=== PATIENT | male | born 1980 | race Caucasian/White ===

== ENCOUNTER 2018-06-22 11:18 | Outpatient (CLI) | payer OTHER | END 2018-06-22 11:19 | disposition home or self-care (01) | LOC: SC 11:18 | PROVIDERS: ATTEND Internal Medicine Pulmonary Disease | DX: R06.81 Apnea, not elsewhere classified (principal); G47.8 Other sleep disorders; R41.89 Other symptoms and signs involving cognitive functions and awareness; G47.10 Hypersomnia, unspecified; R06.83 Snoring; E66.3 Overweight; Z68.28 Body mass index [BMI] 28.0-28.9, adult | CPT/HCPCS: 99203; 99212 ==

== ENCOUNTER 2018-07-02 19:00 | Outpatient (CLI) | payer OTHER | END 2018-07-02 19:01 | disposition home or self-care (01) | LOC: SC 19:00 | PROVIDERS: ATTEND Internal Medicine Pulmonary Disease | DX: G47.33 Obstructive sleep apnea (adult) (pediatric) (principal) | CPT/HCPCS: 95810 ==

== ENCOUNTER 2018-07-27 10:55 | Outpatient (CLI) | payer OTHER | END 2018-07-27 10:56 | disposition home or self-care (01) | LOC: SC 10:55 | PROVIDERS: ATTEND Nurse Practitioner Family | DX: G47.33 Obstructive sleep apnea (adult) (pediatric) (principal) | CPT/HCPCS: 99212; 99214 ==

== ENCOUNTER 2018-09-21 10:39 | Outpatient (CLI) | payer OTHER | END 2018-09-21 10:40 | disposition home or self-care (01) | LOC: SC 10:39 | PROVIDERS: ATTEND Nurse Practitioner Family | DX: G47.33 Obstructive sleep apnea (adult) (pediatric) (principal) | CPT/HCPCS: 99212; 99214 ==

== ENCOUNTER 2020-05-21 19:38 | Emergency (ER) | payer OTHER ==
--- NOTE | 2020-05-22 01:28 | ED Physician Documentation ---
PD HPI CHEST PAIN - Stated complaint Stated Complaint: CHEST PX - Chief complaint Chief Complaint: Cardiac - History obtained from History obtained from: Patient - History of Present Illness Timing - onset: How many days ago (5) Timing - duration: Days Timing - details: Intermittant Quality: Pain Location: Substernal, Right chest Radiation: Other (no radiation) Improved by: Nothing Worsened by: Other (no exacerbsting factors) Associated symptoms: No: Shortness of air, Diaphoresis, Nausea, Vomiting, Feeling faint / dizzy, General Weakness, Palpitations, Cough Similar symptoms before: Has not had sx before Recently seen: Not recently seen Review of Systems Constitutional: reports: Reviewed and negative Cardiac: reports: Chest pain / pressure. denies: Palpitations, Pedal edema Respiratory: reports: Reviewed and negative GI: reports: Reviewed and negative Musculoskeletal: denies: Extremity swelling PD PAST MEDICAL HISTORY - Past Medical History Past Medical History: No - Past Surgical History Past Surgical History: Yes HEENT: Other - Present Medications Home Medications: Ambulatory Orders Medication Instructions Recorded Confirmed No Known Home Medications 05/22/20 05/22/20 - Allergies Allergies/Adverse Reactions: Allergies Allergy/AdvReac Type Severity Reaction Status Date / Time Sulfa (Sulfonamide Allergy Unknown Verified 05/21/20 19:45 Antibiotics) - Social History Does the pt smoke?: No Smoking Status: Never smoker Does the pt drink ETOH?: Yes Does the pt have substance abuse?: No - Immunizations Immunizations are current?: Yes - POLST Patient has POLST: No PD ED PE NORMAL - Vitals Vital signs reviewed: Yes - General General: Alert and oriented X 3, No acute distress, Well developed/nourished - Neck Neck: Supple, no meningeal sign - Cardiac Cardiac: RRR, No murmur, No gallop, No rub - Respiratory Respiratory: No respiratory distress, Clear bilaterally - Abdomen Abdomen: Soft, Non tender - Derm Derm: Normal color, Warm and dry - Extremities Extremities: No edema Results - Vitals Vitals: Oxygen O2 Source Room air - EKG (time done) No standard instances Rate: Rate (enter#) (84) Rhythm: NSR [place]: Normal Intervals: Normal [place] QRS: Normal Ischemia: Normal ST segments - Labs Labs: Laboratory Tests 05/22/20 05/22/20 05/22/20 01:29 01:29 01:29 WBC 5.7 RBC 5.47 Hgb 16.4 Hct 46.9 MCV 85.7 MCH 30.0 MCHC 35.0 RDW 13.1 Plt Count 164 MPV 11.5 H Neut # (Auto) 2.9 Lymph # (Auto) 2.1 [place] # (Auto) 0.5 Eos # (Auto) 0.1 Baso # (Auto) 0.1 Absolute Nucleated RBC 0.00 Nucleated RBC % 0.0 Sodium 137 Potassium 3.7 Chloride 104 Carbon Dioxide 24 Anion Gap 9.0 BUN 17 Creatinine 0.8 Estimated GFR (MDRD) 108 Glucose 96 Calcium 9.2 Total Bilirubin 0.8 AST 20 ALT 33 Alkaline Phosphatase 57 Troponin I High Sens < 2.3 L Total Protein 7.1 Albumin 4.4 Globulin 2.7 Albumin/Globulin Ratio 1.6 Lipase 43 - Rads (name of study) chest xray Radiology: Prelim report reviewed, See rad report PD MEDICAL DECISION MAKING - ED course Complexity details: reviewed results, re-evaluated patient, considered differential, d/w patient Departure - Departure Disposition: 01 Home, Self Care Clinical Impression: Chest pain Condition: Good Instructions: ED Chest Pain Atypical Unkn Cause Discharge Date/Time: 05/22/20 03:31
[2020-05-22 01:35] LABS: BASOPHILS # (AUTO) 0.1 10^3/uL (0.0-0.1); BASOPHILS % (AUTO) 1.2 %; EOSINOPHILS # (AUTO) 0.1 10^3/uL (0.0-0.7); EOSINOPHILS % (AUTO) 1.9 %; HGB - HEMOGLOBIN 16.4 g/dL (14.0-18.0); LYMPHOCYTES # (AUTO) 2.1 10^3/uL (1.5-3.5); LYMPHOCYTES % (AUTO) 36.4 %; MEAN CORPUSCULAR VOLUME 85.7 fL (80.0-94.0); MEAN PLATELET VOLUME 11.5 fL (7.4-11.4); MONOCYTES # (AUTO) 0.5 10^3/uL (0.0-1.0); MONOCYTES % (AUTO) 8.8 %; NEUTROPHILS # (AUTO) 2.9 10^3/uL (1.5-6.6); NEUTROPHILS % (AUTO) 51.5 %; PLT - PLATELET COUNT 164 10^3/uL (130-450); RED BLOOD COUNT 5.47 10^6/uL (4.70-6.10); RED CELL DISTRIBUTION WIDTH 13.1 % (12.0-15.0); WHITE BLOOD COUNT 5.7 x10^3/uL (4.8-10.8)
[2020-05-22 01:48] LABS: ALBUMIN 4.4 g/dL (3.2-5.5); ALBUMIN/GLOBULIN RATIO 1.6 (1.0-2.2); BILIRUBIN,TOTAL 0.8 mg/dL (0.2-1.0); CALCIUM 9.2 mg/dL (8.5-10.3); CREATININE 0.8 mg/dL (0.6-1.2); TOTAL PROTEIN 7.1 g/dL (6.7-8.2)
[2020-05-22 03:32] VITALS: BP 119/87
--- NOTE | 2020-05-22 09:45 | XRAY Report ---
PROCEDURE: Chest 2 View X-Ray INDICATIONS: chest pain TECHNIQUE: 2 view(s) of the chest. COMPARISON: None. FINDINGS: Surgical changes and devices: None. Lungs and pleura: No pleural effusions or pneumothorax. Lungs are clear. Mediastinum: Mediastinal contours are normal. Heart size is normal. Bones and chest wall: No suspicious bony abnormalities. Soft tissues appear unremarkable. IMPRESSION: No acute pulmonary process. The above findings are concordant with preliminary report. Reviewed by: Shelby Villafana MD on 05/22/2020 9:44 AM [facility] Approved by: Shelby Villafana MD on 05/22/2020 9:44 AM [facility] Station ID: [id number]
== END 2020-05-22 03:31 | disposition home or self-care (01) ==
LOC: ED 19:38
DX: R07.89 Other chest pain (principal)
CPT/HCPCS: 36415; 80053; 83690; 84484; 85025; 93005; 99284

== ENCOUNTER 2020-10-09 08:17 | Outpatient (CLI) | payer OTHER ==
--- NOTE | 2020-10-09 12:55 | MRI Report ---
PROCEDURE: Cervical Spine W/O INDICATIONS: CERVICALGIA TECHNIQUE: Noncontrast sagittal T1 spin echo and T2 fast spin echo, sagittal STIR, foraminal oblique sagittal T2 fast spin echo, and axial gradient echo or T2 fast spin echo through the cervical spine. COMPARISON: None. FINDINGS: Image quality: Excellent. Alignment and Curvature: There is loss of normal cervical lordosis. Mild grade 1 retrolisthesis of C 2 on C3 and C4 on C5. Bone Marrow: Marrow demonstrates normal overall signal. Minimal reactive signal within the endplate s adjacent to the C3-C4 intervertebral disc as well as the C5-C6 and C6-C7 intervertebral discs. Spinal Cord: Visualized spinal cord has normal size and signal. No cerebellar tonsillar herniation. Paraspinous Soft Tissues: No paravertebral masses. Prevertebral soft tissues are normal in thicknes s. C2-C3: Mild disc desiccation. No significant canal, nor foraminal stenosis. C3-C4: Mild disc desiccation and diffuse disc bulge. Mild facet and uncovertebral hypertrophy bilat erally. Mild canal stenosis. Mild bilateral foraminal stenosis. C4-C5: Mild disc desiccation. Mild facet and uncovertebral hypertrophy bilaterally. Mild canal steno sis. Mild bilateral foraminal stenosis. C5-C6: Mild disc height loss and desiccation. Mild diffuse disc bulge with superimposed small centra l protrusion. Mild facet and uncovertebral hypertrophy bilaterally. Mild canal stenosis. Mild bilater al foraminal stenosis. C6-C7: Mild disc desiccation and diffuse disc bulge. Mild facet and uncovertebral hypertrophy bilate rally. Mild canal stenosis. Mild bilateral foraminal stenosis. C7-T1: Normal in appearance. IMPRESSION: 1. Multilevel degenerative disc and facet disease, as well as uncovertebral hypertrophy. 2. Mild multilevel canal and foraminal stenoses. 3. No neural impingement. Reviewed by: Annetta Pro MD on 10/09/2020 12:54 PM PDT Approved by: Annetta Pro MD on 10/09/2020 12:54 PM PDT Station ID: [id number]
== END 2020-10-09 08:18 | disposition home or self-care (01) ==
LOC: DI 08:17
PROVIDERS: ATTEND Family Medicine
DX: M47.812 Spondylosis without myelopathy or radiculopathy, cervical region (principal); M50.31 Other cervical disc degeneration, high cervical region; M48.02 Spinal stenosis, cervical region; M50.222 Other cervical disc displacement at C5-C6 level

== ENCOUNTER 2022-04-23 10:26 | Outpatient (CLI) | payer OTHER ==
[2022-04-23 11:16] VITALS: BP 130/88
--- NOTE | 2022-04-23 11:17 | SLEEP CARE CONSULTATION ---
Information from patient questionnaire entered by Sherry Richardson MA. I have reviewed and concur with the information entered by Sherry Richardson MA. This document represents the service I personally performed and the decisions made by , Carmen Bassett ARNP. History of Present Illness Service Date and Time: 04/23/2022 1026 Reason for Visit: Previously diagnosed sleep apnea, Re-establish care Chief Complaint: reports: Unrefreshed sleep, Snoring, Excessive daytime sleepiness, Observed pauses in breathing, Fatigue Date of Onset: 2017 Usual bedtime: 0 - 0 Time it takes to fall asleep: <5min Snores at night: Yes Observed to quit breathing while asleep: Yes Sleeps alone due to snoring: Yes Number of times waking at night: 2+ Reasons for waking at night: reports: Snoring, Gasping for air (1-2 times; not common), Other (unknown reasons) Toss, Turn, or Twitch while sleeping: Yes Recalls having dreams: No Usually gets out of bed at: 0600 Feels refreshed in the morning: No Morning headache: No Sleepy or fatigued during the day: Yes Ever fallen asleep while driving: No Takes day naps: Yes (daily for about 15 mins to 2 hrs) Dreams during day naps: No Prior sleep studies: Yes Additional HPI information: NITIN CHENG was diagnosed to have mild, AHI 9.1, obstructive sleep apnea-hypopnea syndrome and comes in today to re-establish care for Positional therapy. He states the positional therapy has helped but his symptoms have been getting worse. He currently experiencing excessive daytime sleepiness, fatigue, observed pauses in breathing, snoring and unrefreshed sleep. - Parasomnia Symptoms Ever been unable to move upon waking from sleep: No Walks in sleep: No Talks in sleep: Yes Ever acted out dreams in sleep: No Ever felt weak in the knees when startled or emotional: No Bothered by creepy, crawly, restless sensations in legs: No Problems with memory or concentration: Yes (more concentration ) Subjective Current [place] Sleepiness Scale score: 13 (04/23/2022) Past Medical History Past Medical History: reports: Anxiety, Depression Social History The patient's occupation is a AM. Patient is and lives in [place]. Have you smoked in the past 12 months: No Alcohol use: Yes Alcohol amount and frequency: 3-4 PER WEEK Caffeine use: Yes Caffeine amount and frequency: 3+ QD Family History Family history of sleep disordered breathing: Yes Family Hx Sleep Apnea: Mother: Sleep apnea - Treated Allergies and Home Medications Drug allergies reviewed: Yes (Sulfa) Home medication list reviewed: Yes (no daily medications) Review of Systems Weight gain over past 5 years: 25 Respiratory: reports: chronic cough Ear/Nose/Throat: reports: wisdom teeth removed Immunologic: reports: sneezing Physical Exam Vital signs obtained and entered by: KENN BOB Blood Pressure: 130/88 Cuff size: regular Heart Rate: 70 O2 Saturation: 98 Height: 6 ft 1 in Weight: 224 lb 6 oz Body Mass Index: 29.6 BMI Classification: Overweight Neck circumference: 16.5 Heart: regular rate and rhythm Lungs: clear bilaterally Impression and Plan 1. Obstructive Sleep Apnea-Hypopnea Syndrome, mild. Patient has been using positional therapy since 2019. He states that he did have better sleep quality and was more rested overall in the past but has been having an increase of his symptoms for some time. He has gained 25 pounds since his last appointment. He feels he needs something more to control his apnea and he would like to try CPAP therapy again. He tried it for a few months but found the mask off his face, he thinks it may have been due to feeling like he could not breath in mask. Since he has been on consistent positional therapy for his sleep apnea we can transition him to CPAP therapy. I will write a prescription to start nasal APAP therapy at 5-15 cmH2O. He will chose a DME supplier. He will follow up in office a month after starting therapy. He will call if he has any difficulties with the pressure. We reviewed compliance and he voiced understanding. Patient's apnea severity and rationale for treatment to reduce apnea, improve sleep quality and reduce cardiovascular and cerebrovascular events was reviewed. -Continue positional therapy until starting CPAP therapy -Start nasal autoCPAP at 5-15 cmH2O. -Attempt to lose weight -Call this office if any problems -Return for follow up one month after he obtains new device, or sooner if concerns arise Counseling Topics: Sleeping position, Weight loss health impact Prescriptions: Auto CPAP Visit Type: In Office Time Spent with Patient (minutes): 31 Provider Statement: I spent 100% of the Face to Face Visit with the patient with greater than 50% spent counseling the patient and coordination of care.
== END 2022-04-23 10:27 | disposition home or self-care (01) ==
LOC: SC 10:26
PROVIDERS: ATTEND Nurse Practitioner Family
DX: G47.33 Obstructive sleep apnea (adult) (pediatric) (principal); E66.3 Overweight; Z68.29 Body mass index [BMI] 29.0-29.9, adult
CPT/HCPCS: 99203; 99212

== ENCOUNTER 2022-10-14 13:15 | Outpatient (CLI) | payer OTHER ==
--- NOTE | 2022-10-14 13:56 | SLEEP CARE CONSULTATION ---
Information from patient questionnaire entered by Moise Plascencia. I have reviewed and concur with the information entered by Moise Plascencia. This document represents the service I personally performed and the decisions made by , Carmen Bassett ARNP. History of Present Illness Service Date and Time: 10/14/2022 1315 Previous diagnosis: Mild, Obstructive Sleep Apnea-Hypopnea Syndrome (Resmed) AHI: 9.1 Reason for follow up: first compliance Equipment type: CPAP (Resmed Airsense 11, s/u 07/2022) Equipment obtained from: [employer] ([employer]) Mask style: Nasal (medium) Backup mask available: No (will keep old mask when replaced) Last cushion change: 2 months Prior sleep studies: Yes Year and Where: 2018 [facility] Type of Sleep Study: Polysomnography HPI additional information: NITIN CHENG was diagnosed to have mild, AHI 9.1, obstructive sleep apnea- hypopnea syndrome and returned today for CPAP therapy first compliance follow- up. Sleep Study - Results Type of Sleep Study: Polysomnography Prior sleep studies: Yes Year and Where: 2018 [facility] CPAP Compliance Data - Data Reviewed with Patient Average duration of nightly device use: 1 hour 8 minutes Compliance rate %: 0 (23/60 days used) Current pressure setting (cmH2O): 5-15 (median 4.7, avg 5.9, max 6.2) Average residual AHI: 2.6 Central apnea: 0 Obstructive apnea: 1 Subjective Missed days of use due to: reports: other (taking mask off when sleeping; scheduling) Patient concerns: reports: dry mouth, nose, throat (occasional). denies: aerophagia, mask discomfort, air blowing in eyes, mask leak noise, condensation in mask/hose, nasal congestion, epistaxis Observed to snore while using device: No Current pressure setting perceived as: comfortable On therapy, patient: reports: awakening more refreshed, being more awake and alert during the day, more rested overall. denies: drowsiness while driving Initial [place] Sleepiness Scale score: 12 (In 06/2018) Current [place] Sleepiness Scale score: 6 Allergies and Home Medications Known drug allergies: Yes (sulfa) Drug allergies reviewed: Yes Home medication list reviewed: Yes (no changes) Allergy and home medication list: Allergies Sulfa (Sulfonamide Antibiotics) Allergy Unknown Review of Systems Review of systems same as previous: Yes (no changes) Physical Exam Vital signs obtained and entered by: Carmen Benitez NP Blood Pressure: 141/86 Cuff size: wrist (right) Heart Rate: 97 O2 Saturation: 97 Height: 6 ft 1 in Weight: 237 lb Body Mass Index: 31.2 BMI Classification: Obese Impression and Plan 1. Obstructive Sleep Apnea-Hypopnea Syndrome, mild, with poor treatment compliance and good apnea control. On CPAP therapy, the patient has been more alert during the day and is more rested overall. He had been working on his schedule to be able to put the mask on every night. But, he will take the mask off his face while sleeping a couple hours after sleep is initiated. He is committed to using the CPAP and will try to increase compliance. The patients pressure will be changed to autoCPAP 5-10 cmH20 to reflect pressure being used. Patient advised to contact me if pressure change is uncomfortable so that it can be adjusted. Goals for apnea control discussed. Patient's apnea severity and rationale for treatment to reduce apnea, improve sleep quality and reduce cardiovascular and cerebrovascular events was reviewed. I also reviewed the benefit of consistent device use of CPAP for depression/anxiety. 2. Obesity, unspecified. Currently patients BMI is 31.2. Obesity increases the risk of apnea, CPAP pressure requirements and overall health risks especially cardiovascular and diabetes. Thus patient is advised to lose weight. * Change auto CPAP pressure to 5-10 cmH2O * Notify me if snoring with mask or feeling that the pressure is too much or too little * Attempt to lose weight * Call this office if any problems using CPAP * Return for follow up in 1-2 months, or sooner if concerns arise Counseling Topics: Spare mask, Weight loss health impact Visit Type: In Office Time Spent with Patient (minutes): 22 Provider Statement: I spent 100% of the Face to Face Visit with the patient with greater than 50% spent counseling the patient and coordination of care.
[2022-10-14 14:05] VITALS: BP 141/86
== END 2022-10-14 13:16 | disposition home or self-care (01) ==
LOC: SC 13:15
PROVIDERS: ATTEND Nurse Practitioner Family
DX: G47.33 Obstructive sleep apnea (adult) (pediatric) (principal); E66.9 Obesity, unspecified; Z68.31 Body mass index [BMI] 31.0-31.9, adult
CPT/HCPCS: 99212

== ENCOUNTER 2023-02-17 16:32 | Emergency (ER) | payer OTHER ==
[2023-02-17 17:37] LABS: BASOPHILS # (AUTO) 0.1 10^3/uL (0.0-0.1); BASOPHILS % (AUTO) 0.8 %; EOSINOPHILS # (AUTO) 0.1 10^3/uL (0.0-0.7); EOSINOPHILS % (AUTO) 1.4 %; HCT - HEMATOCRIT 48.6 % (42.0-52.0); HGB - HEMOGLOBIN 16.9 g/dL (14.0-18.0); LYMPHOCYTES % (AUTO) 25.5 %; MEAN CORPUSCULAR HEMOGLOBIN 29.2 pg (27.0-31.0); MEAN CORPUSCULAR HGB CONC 34.8 g/dL (32.0-36.0); MEAN CORPUSCULAR VOLUME 83.9 fL (80.0-94.0); MEAN PLATELET VOLUME 10.8 fL (7.4-11.4); MONOCYTES # (AUTO) 0.8 10^3/uL (0.0-1.0); MONOCYTES % (AUTO) 10.2 %; NEUTROPHILS # (AUTO) 4.9 10^3/uL (1.5-6.6); NEUTROPHILS % (AUTO) 61.8 %; PLT - PLATELET COUNT 189 10^3/uL (130-450); RED BLOOD COUNT 5.79 10^6/uL (4.70-6.10); RED CELL DISTRIBUTION WIDTH 13.1 % (12.0-15.0)
[2023-02-17 17:52] LABS: ALBUMIN 4.6 g/dL (3.2-5.5); ALBUMIN/GLOBULIN RATIO 2.1 (1.0-2.2); BILIRUBIN,TOTAL 0.5 mg/dL (0.2-1.0); CALCIUM 9.9 mg/dL (8.5-10.3); CREATININE 0.8 mg/dL (0.6-1.3); PHOSPHORUS 4.1 mg/dL (2.5-5.0); POTASSIUM 4.1 mmol/L (3.5-4.5); TOTAL PROTEIN 6.8 g/dL (6.4-8.9)
[2023-02-17 17:58] LABS: TROPONIN I HIGH SENSITIVITY 2.7 ng/L (2.3-19.7)
--- NOTE | 2023-02-17 17:58 | ED Physician Documentation ---
History of Present Illness - Stated complaint Stated Complaint: HEART PALPITATIONS/HIGH BP - Chief complaint Chief Complaint: Cardiac - History obtained from History obtained from: Patient - History of Present Illness Timing: Today Pain level max: 0 Pain level now: 0 - Additonal information Additional information: 42-year-old male presents to the emergency department with approximately 5 minutes of palpitations earlier today. Occurred when he went to lie down for a nap. Had a cup of coffee this morning, but denies any other stimulant use. No energy drinks. Drinks alcohol occasionally. Does not use marijuana. Does not use any other drugs. Does not smoke. No fevers. No chills. No chest pain. No recent illnesses. No recent travel. No recent surgery. No history of blood clots. No dyspnea. Patient is fully asymptomatic. Review of Systems Constitutional: denies: Fever, Chills GI: denies: Vomiting, Diarrhea Skin: denies: Rash Musculoskeletal: denies: Neck pain, Back pain Neurologic: denies: Headache PD PAST MEDICAL HISTORY - Past Medical History Past Medical History: Yes Cardiovascular: Hypertension - Past Surgical History Past Surgical History: Yes HEENT: Other - Present Medications Home Medications: Ambulatory Orders Medication Instructions Recorded Confirmed No Known Home Medications 05/22/20 02/17/23 - Allergies Allergies/Adverse Reactions: Allergies Allergy/AdvReac Type Severity Reaction Status Date / Time Sulfa (Sulfonamide Allergy Unknown Verified 02/17/23 17:01 Antibiotics) - Social History Does the pt smoke?: No Smoking Status: Never smoker Does the pt drink ETOH?: Yes Does the pt have substance abuse?: No - Immunizations Immunizations are current?: Yes - POLST Patient has POLST: No PD ED PE NORMAL - Vitals Vital signs reviewed: Yes - General General: Alert and oriented X 3, No acute distress - HEENT HEENT: PERRL, Moist mucous membranes - Neck Neck: Supple, no meningeal sign - Cardiac Cardiac: RRR, Strong equal pulses - Respiratory Respiratory: No respiratory distress, Clear bilaterally - Abdomen Abdomen: Soft, Non tender, Non distended - Back Back: No spinal TTP - Derm Derm: Warm and dry - Extremities Extremities: No edema, No calf tenderness / cord - Neuro Neuro: Alert and oriented X 3, 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 Relevant findings are: Rate: Rate (enter#) (99) Rhythm: NSR [place]: Normal Intervals: Normal [place] QRS: Normal Ischemia: Normal ST segments - Labs Labs: Laboratory Tests 02/17/23 02/17/23 17:32 17:32 WBC 8.0 RBC 5.79 Hgb 16.9 Hct 48.6 MCV 83.9 MCH 29.2 MCHC 34.8 RDW 13.1 Plt Count 189 MPV 10.8 Neut # (Auto) 4.9 Lymph # (Auto) 2.0 [place] # (Auto) 0.8 Eos # (Auto) 0.1 Baso # (Auto) 0.1 Absolute Nucleated RBC 0.00 Nucleated RBC % 0.0 Sodium 140 Potassium 4.1 Chloride 103 Carbon Dioxide 31 Anion Gap 6.0 BUN 13 Creatinine 0.8 Estimated GFR (MDRD) 107 Glucose 80 Calcium 9.9 Phosphorus 4.1 Magnesium 2.0 Total Bilirubin 0.5 AST 24 ALT 56 Alkaline Phosphatase 64 Troponin I High Sens 2.7 Total Protein 6.8 Albumin 4.6 Globulin 2.2 Albumin/Globulin Ratio 2.1 Lipase 57 TSH 1.23 Free T4 Direct 0.93 - Rads (name of study) cxr Relevant Findings:: Final report received PD Medical Decision Making - ED course Complexity details: reviewed results, re-evaluated patient, considered differ ential, d/w patient ED course: No acute lab abnormalities. No evidence of arrhythmia on telemetry. No acute findings on EKG, chest x-ray. Patient is asymptomatic here. No risk factors for PE. No chest pain. No shortness of breath. No leg swelling. No recent travel. No recent illnesses. Unclear etiology of his palpitations earlier today. Recommend a Holter monitor or Zio patch with his doctor. Recommend avoidance of stimulants. Patient will return if he worsens. No syncope or near syncope. Thyroid testing normal. Patient counseled regarding signs and s ymptoms for which I believe and urgent re-evaluation would be necessary. Patient with good understanding of and agreement to plan and is comfortable going home at this time This document was made in part using voice recognition software. While efforts are made to proofread this document, sound alike and grammatical errors may occur. Departure - Departure Disposition: 01 Home, Self Care Clinical Impression: Palpitations Condition: Good Instructions: ED Palpitations Follow-Up: Your,doctor in 1 week [Other] Comments: The cause of your palpitations earlier today is unclear. Please follow-up with your doctor for further care. Your laboratory testing does not show any acute abnormalities. Your chest x-ray and EKG are normal as well. Your thyroid testing is normal. It is recommended that you follow-up with your doctor for a Holter monitor or Zio patch. These can monitor for any arrhythmias. Please avoid stimulants and return if you worsen. Forms: PCP List Discharge Date/Time: 02/17/23 19:03
[2023-02-17 18:09] LABS: THYROID STIMULATING HORMONE 1.23 uIU/mL (0.34-5.60)
[2023-02-17 19:08] VITALS: BP 127/96; O2SAT 97
--- NOTE | 2023-02-17 19:37 | XRAY Report ---
PROCEDURE: Chest 1 View X-Ray INDICATIONS: Chest Pain TECHNIQUE: One view of the chest was acquired. COMPARISON: 05/22/2020. FINDINGS: Surgical changes and devices: None. Lungs and pleura: No pleural effusions or pneumothorax. Lungs are clear. Mediastinum: Mediastinal contours appear normal. Heart size is normal. Bones and chest wall: No suspicious bony lesions. Overlying soft tissues appear unremarkable. IMPRESSION: No acute cardiopulmonary process. Reviewed by: Gavino Baker MD on 02/17/2023 7:35 PM PDT Approved by: Gavino Baker MD on 02/17/2023 7:35 PM PDT Station ID: [id number]
== END 2023-02-17 19:03 | disposition home or self-care (01) ==
LOC: ED 16:32
DX: R00.2 Palpitations (principal)
CPT/HCPCS: 36415; 80053; 83690; 83735; 84100; 84439; 84443; 84484; 85025; 93005; 99283; 99284

== ENCOUNTER 2023-05-01 07:45 | Emergency (ER) | payer OTHER ==
--- NOTE | 2023-05-01 08:53 | XRAY Report ---
PROCEDURE: Chest 2V INDICATIONS: cough TECHNIQUE: 2 views of the chest were acquired. COMPARISON: Chest radiograph 02/17/2023 FINDINGS: Surgical changes and devices: None. Lungs and pleura: No pleural effusions or pneumothorax. Lungs are clear. Mediastinum: Mediastinal contours appear normal. Heart size is normal. Bones and chest wall: No suspicious bony lesions. Overlying soft tissues appear unremarkable. IMPRESSION: No acute cardiopulmonary process. Reviewed by: Blu Colon MD on 05/01/2023 8:51 AM PST Approved by: Blu Colon MD on 05/01/2023 8:51 AM PST Station ID: [id number]
--- NOTE | 2023-05-01 10:14 | ED Physician Documentation ---
PD HPI URI - Stated complaint Stated Complaint: COUGH - Chief complaint Chief Complaint: Resp - History obtained from History obtained from: Patient - Additional information Additional information: Otherwise healthy 42-year-old gentleman has had a productive cough with sinus drainage for little over 2 weeks. No fevers. His toddler aged daughter is also sick. PD PAST MEDICAL HISTORY - Past Medical History Past Medical History: Yes Cardiovascular: Hypertension Respiratory: Sleep apnea, CPAP use Neuro: None Endocrine/Autoimmune: None GI: None : None HEENT: None Psych: None Musculoskeletal: None Derm: None - Past Surgical History Past Surgical History: Yes HEENT: Other - Present Medications Home Medications: Ambulatory Orders Medication Instructions Recorded Confirmed guaiFENesin/CODEINE [Robitussin AC] 5 - 10 ml PO Q6H PRN #120 ml 05/01/23 - Allergies Allergies/Adverse Reactions: Allergies Allergy/AdvReac Type Severity Reaction Status Date / Time Sulfa (Sulfonamide Allergy Unknown Verified 05/01/23 07:56 Antibiotics) - Social History Does the pt smoke?: No Smoking Status: Never smoker Does the pt drink ETOH?: Yes Does the pt have substance abuse?: No - Immunizations Immunizations are current?: Yes - POLST Patient has POLST: No PD ED PE NORMAL - Vitals Vital signs reviewed: Yes - General General: Alert and oriented X 3, No acute distress - HEENT HEENT: Pharynx benign - Cardiac Cardiac: RRR, No murmur - Respiratory Respiratory: No respiratory distress, Clear bilaterally - Abdomen Abdomen: Non tender Results - Vitals Vitals: Vital Signs - 24 hr 05/01/23 05/01/23 07:57 09:43 Temperature 36.1 C L 37.2 C Heart Rate 87 78 Respiratory 18 18 Rate Blood Pressure 135/98 H 148/87 H O2 Saturation 98 97 Oxygen O2 Source Room air - Rads (name of study) 2v cxr Relevant Findings:: Final report received, EMP independent interpretation of test PD Medical Decision Making - ED course ED course: 42-year-old gentleman with viral respiratory infection, clear chest x-ray, no pneumonia, likely RSV given the length of symptoms and [employer] respiratory panel is pending on discharge but would not manager of change per se. Departure - Departure Disposition: 01 Home, Self Care Clinical Impression: Viral respiratory illness Condition: Good Record reviewed to determine appropriate education?: Yes Instructions: ED Viral Syndrome Prescriptions: guaiFENesin/CODEINE [Robitussin AC] 5 - 10 ml PO Q6H PRN #120 ml PRN Reason: Cough Comments: I sent a prescription for some stronger cough medicine to [facility] in [place]. As discussed I suspect you probably have RSV based on the length of your symptoms. The swab is pending and takes a few hours, we will call you if it is positive for COVID but otherwise you can look up results in the patient portal on the hospital website. Return if worse. [place].
[2023-05-01 10:21] VITALS: BP 135/92; O2SAT 96
[2023-05-01 10:22] LABS: B. PARAPERTUSSIS- RESP PCR PAN NOT DETECTED; B. PERTUSSIS- RESP PCR PANEL NOT DETECTED; C. PNEUMONIAE- RESP PCR PANEL NOT DETECTED; CORONAVIRUS 229E-RESP PCR NOT DETECTED; CORONAVIRUS HKU1-RESP PCR NOT DETECTED; CORONAVIRUS NL63-RESP PCR NOT DETECTED; CORONAVIRUS OC43-RESP PCR NOT DETECTED; HUMAN METAPNEUMOVIRUS NOT DETECTED; INFLUENZA A- RESP PCR PANEL NOT DETECTED; INFLUENZA B - RESP PCR PANEL NOT DETECTED; M. PNEUMONIAE- RESP PCR PANEL NOT DETECTED; PARAINFLUENZA VIRUS 1 NOT DETECTED; PARAINFLUENZA VIRUS 2 NOT DETECTED; PARAINFLUENZA VIRUS 3 NOT DETECTED; PARAINFLUENZA VIRUS 4 NOT DETECTED; RHINOVIRUS/ENTEROVIRUS DETECTED; RSV- RESP PCR PANEL NOT DETECTED; SARS-CoV-2 -RESP PCR PANEL NOT DETECTED
== END 2023-05-01 10:24 | disposition home or self-care (01) ==
LOC: ED 07:45
DX: J98.8 Other specified respiratory disorders (principal); I10 Essential (primary) hypertension; Z11.52 Encounter for screening for COVID-19
CPT/HCPCS: 87633; 99283; 99284